=== PATIENT | female | born 1960 | race African-American/Black ===

== ENCOUNTER 2017-09-30 18:58 | Inpatient (IN) | payer MEDICARE, OTHER ==
[~2017-09-30] VITALS: Ht 177.8 cm; Wt 91.6 kg
[2017-09-30 19:00] VITALS: BP 147/96
[2017-09-30] MEDS ORDERED: DULERA 200 MCG/13 GM IH (19:15)
[2017-09-30] MEDS ORDERED: DUONEB 0.5-3(2.53 ML HHN (19:15)
[2017-09-30] MEDS ORDERED: [UNRECOGNIZED DRUG - REMARK] (19:15)
[2017-09-30] MEDS ORDERED: BENAZEPRIL HCL10 MG ORAL (19:15)
[2017-09-30] MEDS ORDERED: HYDROCHLOROTH12.5 M2 ORAL (19:15)
[2017-09-30] MEDS ORDERED: Sodium Chloride 500ML 500 ML IV ONE (19:16)
[2017-09-30] MEDS ORDERED: Solu-MEDROL 125mg Inj IVP ONE (19:30)
[2017-09-30] MEDS: Albuterol ud Inhalation HHN SCH ×3 (19:30→20:00)
[2017-09-30] MEDS: Ipratropium 0.02% Inh Soln 2.5ml UD HHN SCH ×3 (19:30→20:00)
[2017-09-30 20:03] LABS: BASOPHILS % (AUTO) 0.8 % (0.0-2.0); LYMPHOCYTES % (AUTO) 23.8 % (20.0-45.0); MEAN CORPUSCULAR HEMOGLOBIN 28.1 PG (27.0-31.0); MEAN CORPUSCULAR HGB CONC 31.5 G/DL (32.0-36.0); MEAN CORPUSCULAR VOLUME 89 FL (80-99); MEAN PLATELET VOLUME 6.8 FL (6.5-10.1); MONOCYTES % (AUTO) 5.8 % (1.0-10.0); NEUTROPHILS % (AUTO) 66.6 % (45.0-75.0); PLATELET COUNT 379 K/UL (150-450); RED BLOOD COUNT 4.13 M/UL (4.20-5.40); RED CELL DISTRIBUTION WIDTH 13.1 % (11.6-14.8); WHITE BLOOD COUNT 15.6 K/UL (4.8-10.8)
[2017-09-30 20:06] LABS: ANION GAP 8 mmol/L (5-15); CARBON DIOXIDE 29 MMOL/L (21-32); CHLORIDE 102 MMOL/L (98-107); CREATININE 1.2 MG/DL (0.55-1.30); GLOMERULAR FILTRATION RATE 56.6 mL/min (>60); POTASSIUM 3.4 MMOL/L (3.5-5.1); SODIUM 139 MMOL/L (136-145)
[2017-09-30 20:22] LABS: ALANINE AMINOTRANSFERASE 13 U/L (12-78); ALBUMIN/GLOBULIN RATIO 0.5 (1.0-2.7); ASPARTATE AMINO TRANSFERASE 20 U/L (15-37); CKMB 1.5 NG/ML (0.0-3.6); TOTAL PROTEIN 9.1 G/DL (6.4-8.2)
[2017-09-30 20:54] LABS: APPEARANCE,URINE CLEAR; KETONES,URINE NEGATIVE (NEGATIVE); LEUKOCYTE ESTERASE ,URINE 3+ (NEGATIVE); NITRITE,URINE NEGATIVE (NEGATIVE); PH,URINE 5 (4.5-8.0); PROTEIN,URINE 2+ (NEGATIVE); UROBILINOGEN,URINE NORMAL MG/DL (0.0-1.0)
[2017-09-30 21:00] VITALS: BP 127/81
[2017-09-30 21:03] LABS: BACTERIA,URINE FEW /HPF; RBC,URINE 0-2 /HPF (0 - 2); SQUAMOUS EPITHELIAL CELL,UR FEW /LPF (NONE/OCC)
--- NOTE | 2017-09-30 21:29 | Emergency Room Report ---
History of Present Illness General Chief Complaint: Dyspnea/Respdistress Source: Patient Present Illness HPI 56-year-old female presents to ED for evaluation. Patient brought in by EMS for shortness of breath. Patient states she's been having a cough that is productive with greenish sputum for the last 2 days. Also complaining of shortness of breath or wheezing. Has history of COPD. Denies chest pain. Denies fevers chills. No other aggravating relieving factors. Denies any other associated symptoms Allergies: Coded Allergies: LIDOCAINE (Verified Allergy, Unknown, 09/30/17) PENICILLINS (Verified Allergy, Unknown, 09/30/17) Uncoded Allergies: NOVACAINE (Allergy, Unknown, 09/30/17) Patient History Past Medical History: COPD Past Surgical History: none Pertinent Family History: none Social History: Denies: smoking, alcohol use, drug use Now: No Immunizations: UTD Reviewed Nursing Documentation: PMH: Agreed, PSxH: Agreed Nursing Documentation-PMH Hx COPD: Yes - Pneumonia "several times" Review of Systems All Other Systems: negative except mentioned in HPI Physical Exam Vital Signs Date Time Temp Pulse Resp B/P (MAP) Pulse Ox O2 Delivery O2 Flow Rate FiO2 09/30/17 18:54 90 28 133/72 99 Venturi Mask 09/30/17 19:00 97.3 09/30/17 19:20 21 Sp02 EP Interpretation: reviewed, normal General Appearance: no apparent distress, alert, GCS 15, non-toxic Head: normocephalic, atraumatic Eyes: bilateral eye normal inspection, bilateral eye PERRL ENT: hearing grossly normal, normal pharynx, no angioedema, normal voice Neck: full range of motion, supple/symm/no masses Respiratory: crackles, speaking full sentences, wheezing Cardiovascular #1: regular rate, rhythm, no edema Cardiovascular #2: 2+ carotid (R), 2+ carotid (L), 2+ radial (R), 2+ radial (L) , 2+ dorsalis pedis (R), 2+ dorsalis pedis (L) Gastrointestinal: normal bowel sounds, non tender, soft, non-distended, no guarding, no rebound Rectal: deferred Genitourinary: normal inspection, no CVA tenderness Musculoskeletal: back normal, gait/station normal, normal range of motion, non- tender Neurologic: alert, oriented x3, responsive, motor strength/tone normal, sensory intact, speech normal Psychiatric: judgement/insight normal, memory normal, mood/affect normal, no suicidal/homicidal ideation Reflexes: 3+ bicep (R), 3+ bicep (L), 3+ tricep (R), 3+ tricep (L), 3+ knee (R) , 3+ knee (L) Skin: normal color, no rash, warm/dry, well hydrated Lymphatic: no adenopathy Medical Decision Making Diagnostic Impression: Primary Impression: COPD exacerbation Additional Impression: Pneumonia Qualified Codes: J18.9 - Pneumonia, unspecified organism ER Course Hospital Course 56-year-old F presenting to ED with SOB. h/o COPD Differential diagnoses include: Pneumonia, CHF exacerbation, pneumothorax, fluid overload Clinical course Patient placed on stretcher. On belt changer with stable vitals. After initial history and physical, I ordered nebulizer treatments. I ordered labs, IV fluids, EKG, chest x-ray, blood cultures, UA. Labs - noted leukocytosis, hemoglobin/hematocrit stable, electrolytes okay, lactate okay, troponins negative CXR -bilateral infiltrates EKG- NSR, no acute ischemic changes interpreted by me abx given. IVFs given Case discussed with Dr. Yung and he agreed to the patient to his service for further care and support I feel this is a highly complex case requiring extensive working including EKG/ Rhythm strip, Xray/CT/US, Blood/urine lab work, repeat exams while in ED, and administration of strong opiates/narcotics for pain control, admission to hospital or close patient follow up. Diagnosis - COPD exacerbation, pneumonia Patient admitted to telemetry in serious condition Labs Test 09/30/17 19:07 09/30/17 20:30 White Blood Count 15.6 K/UL (4.8-10.8) Red Blood Count 4.13 M/UL (4.20-5.40) Hemoglobin 11.6 G/DL (12.0-16.0) Hematocrit 36.9 % (37.0-47.0) Mean Corpuscular Volume 89 FL (80-99) Mean Corpuscular Hemoglobin 28.1 PG (27.0-31.0) Mean Corpuscular Hemoglobin Concent 31.5 G/DL (32.0-36.0) Red Cell Distribution Width 13.1 % (11.6-14.8) Platelet Count 379 K/UL (150-450) Mean Platelet Volume 6.8 FL (6.5-10.1) Neutrophils (%) (Auto) 66.6 % (45.0-75.0) Lymphocytes (%) (Auto) 23.8 % (20.0-45.0) Monocytes (%) (Auto) 5.8 % (1.0-10.0) Eosinophils (%) (Auto) 3.0 % (0.0-3.0) Basophils (%) (Auto) 0.8 % (0.0-2.0) Sodium Level 139 MMOL/L (136-145) Potassium Level 3.4 MMOL/L (3.5-5.1) Chloride Level 102 MMOL/L (98-107) Carbon Dioxide Level 29 MMOL/L (21-32) Anion Gap 8 mmol/L (5-15) Blood Urea Nitrogen 19 mg/dL (7-18) Creatinine 1.2 MG/DL (0.55-1.30) Estimat Glomerular Filtration Rate 56.6 mL/min (>60) Glucose Level 98 MG/DL (74-106) Lactic Acid Level 1.50 mmol/L (0.66-2.22) Calcium Level 9.0 MG/DL (8.5-10.1) Total Bilirubin 0.3 MG/DL (0.2-1.0) Aspartate Amino Transf (AST/SGOT) 20 U/L (15-37) Alanine Aminotransferase (ALT/SGPT) 13 U/L (12-78) Alkaline Phosphatase 68 U/L (46-116) Total Creatine Kinase 103 U/L (26-308) Creatine Kinase MB 1.5 NG/ML (0.0-3.6) Creatine Kinase MB Relative Index 1.4 Troponin I 0.000 ng/mL (0.000-0.056) Pro-B-Type Natriuretic Peptide 222 pg/mL (0-125) Total Protein 9.1 G/DL (6.4-8.2) Albumin 3.2 G/DL (3.4-5.0) Globulin 5.9 g/dL Albumin/Globulin Ratio 0.5 (1.0-2.7) Urine Color Pale yellow Urine Appearance Clear Urine pH 5 (4.5-8.0) Urine Specific [place] 1.010 (1.005-1.035) Urine Protein 2+ (NEGATIVE) Urine Glucose (UA) Negative (NEGATIVE) Urine Ketones Negative (NEGATIVE) Urine Occult Blood 1+ (NEGATIVE) Urine Nitrite Negative (NEGATIVE) Urine Bilirubin Negative (NEGATIVE) Urine Urobilinogen Normal MG/DL (0.0-1.0) Urine Leukocyte Esterase 3+ (NEGATIVE) Urine RBC 0-2 /HPF (0 - 2) Urine WBC 2-4 /HPF (0 - 2) Urine Squamous Epithelial Cells Few /LPF (NONE/OCC) Urine Bacteria Few /HPF (NONE) EKG Diagnostic Results Rate: normal Rhythm: NSR ST Segments: no acute changes ASA given to the pt in ED: No Rhythm Strip Diag. Results EP Interpretation: yes Rhythm: NSR, no PVC's, no ectopy Chest X-Ray Diagnostic Results Chest X-Ray Diagnostic Results : Chest X-Ray Ordered: Yes # of Views/Limited/Complete: 1 View Indication: Shortness of Breath EP Interpretation: Yes Interpretation: no pneumothorax, no acute cardiopulmonary disease, other - bilateral pneumonia Impression: Other - pneumonia Electronically Signed by: Electronically signed by Navin Weinstein MD Last Vital Signs Date Time Temp Pulse Resp B/P (MAP) Pulse Ox O2 Delivery O2 Flow Rate FiO2 09/30/17 20:06 93 14 100 Room Air 21 09/30/17 19:00 97.3 147/96 Status: improved Disposition: ADMITTED INPATIENT Condition: Serious Referrals: NON PHYSICIAN (PCP) NAVIN WEINSTEIN M.D. Sep 30, 2017 21:29
[2017-09-30 22:30] VITALS: BP_SYST 131; BP_SYST 143; BP_DIAS 73; BP_DIAS 77
[2017-09-30] MEDS ORDERED: Morphine Sulfate 2mg/ml Inj IVP PRN (23:00)
[2017-09-30] MEDS ORDERED: Promethazine/Codeine 5ml UD ORAL PRN (23:00)
[2017-09-30] MEDS ORDERED: Ketorolac 30mg Inj IV PRN (23:00)
[2017-09-30] MEDS ORDERED: LORazepam Inj 2mg/ml 1ml IV PRN (23:00)
[2017-09-30] MEDS ORDERED: Albuterol/Ipratropium 3ml neb HHN PRN (23:00)
[2017-09-30] MEDS ORDERED: Nitroglycerin Subl 0.4mg tab SL PRN (23:00)
[2017-10-01] VITALS: BP 148/68
[2017-10-01] MEDS: Solu-MEDROL 125mg Inj IV SCH ×4 (00:22→17:43)
[2017-10-01 04:00] VITALS: BP 108/83
[2017-10-01] MEDS: Aztreonam Inj 1 GM in NS 50 ML IVPB SCH ×3 (06:09→22:59)
[2017-10-01 08:00] VITALS: BP 130/71
[2017-10-01] MEDS ORDERED: Theophylline ER 100mg ORAL SCH (09:00)
[2017-10-01] MEDS ORDERED: Heparin 5000 units/ml inj SUBQ SCH (09:00)
[2017-10-01] MEDS ORDERED: Benazepril 10mg tab ORAL SCH (09:00)
[2017-10-01 12:00] VITALS: BP 125/71
--- NOTE | 2017-10-01 12:47 | History and Physical ---
History of Present Illness General Date patient seen: Oct 01, 2017 Reason for Hospitalization: Dyspnea/Respdistress Present Illness HPI 56-year-old female with history of COPD presented to ED for evaluation of shortness of breath and ough that is productive with greenish sputum for the last 2 days. Also complaining of shortness of breath or wheezing. Pt is admitted for acute exacerbation of COPd and bronchitis. Allergies: Coded Allergies: LIDOCAINE (Verified Allergy, Unknown, 09/30/17) PENICILLINS (Verified Allergy, Unknown, 09/30/17) Uncoded Allergies: NOVACAINE (Allergy, Unknown, 09/30/17) Medication History Scheduled Benazepril Hcl* (Benazepril Hcl*), 10 MG ORAL DAILY, (Reported) Hydrochlorothiazide* (Hydrochlorothiazide*), Unknown Dose ORAL DAILY, (Reported) Ipratropium/Albuterol Sulfate (DuoNeb 0.5-3(2.5)mg/3ml), 3 ML HHN BID, (Reported ) Miscellaneous Medications Mometasone/Formoterol (Dulera 200 Mcg/5 Mcg Inhaler), Unknown Dose IH, (Reported ) ["Other copd meds"], (Reported) Patient History Healthcare decision maker Resuscitation status Full Code Advanced Directive on File No Past Medical/Surgical History Past Medical/Surgical History: (1) COPD (chronic obstructive pulmonary disease) Review of Systems Respiratory: Reports: cough, wheezing, sputum Physical Exam General Appearance: WD/WN Lines, tubes and drains: peripheral Neck: non-tender, normal alignment Respiratory/Chest: chest wall non-tender, lungs clear Breasts: no masses Cardiovascular/Chest: normal peripheral pulses, normal rate Abdomen: normal bowel sounds, non tender Genitourinary/Rectal: normal genital exam Extremities: normal range of motion Last 24 Hour Vital Signs Date Time Temp Pulse Resp B/P (MAP) Pulse Ox O2 Delivery O2 Flow Rate FiO2 10/01/17 12:00 97.2 60 20 125/71 96 Room Air 10/01/17 08:20 130/71 10/01/17 08:00 68 10/01/17 08:00 97.1 65 20 130/71 95 Room Air 10/01/17 06:49 67 18 Room Air 21 10/01/17 04:00 67 10/01/17 04:00 98.4 83 24 108/83 98 Room Air 10/01/17 00:00 76 10/01/17 00:00 97.4 76 22 148/68 94 Room Air 09/30/17 22:30 97.3 78 14 131/73 95 Room Air 21 09/30/17 22:30 98.7 75 14 131/73 95 Room Air 09/30/17 22:30 97.5 78 25 143/77 95 Room Air 09/30/17 21:00 98.7 81 17 127/81 95 Room Air 09/30/17 20:06 93 14 100 Room Air 21 09/30/17 19:53 86 21 100 Room Air 21 09/30/17 19:53 89 20 100 Room Air 21 09/30/17 19:53 36 09/30/17 19:36 78 22 100 Room Air 21 09/30/17 19:36 36 09/30/17 19:32 98 22 100 Room Air 21 09/30/17 19:20 36 09/30/17 19:20 103 20 91 Room Air 09/30/17 19:20 105 22 Room Air 21 09/30/17 19:00 97.3 92 20 147/96 92 Room Air 09/30/17 19:00 92 20 Room Air 09/30/17 18:54 90 28 133/72 99 Venturi Mask Laboratory Tests Test 09/30/17 19:07 09/30/17 20:30 White Blood Count 15.6 K/UL (4.8-10.8) H Red Blood Count 4.13 M/UL (4.20-5.40) L Hemoglobin 11.6 G/DL (12.0-16.0) L Hematocrit 36.9 % (37.0-47.0) L Mean Corpuscular Volume 89 FL (80-99) Mean Corpuscular Hemoglobin 28.1 PG (27.0-31.0) Mean Corpuscular Hemoglobin Concent 31.5 G/DL (32.0-36.0) L Red Cell Distribution Width 13.1 % (11.6-14.8) Platelet Count 379 K/UL (150-450) Mean Platelet Volume 6.8 FL (6.5-10.1) Neutrophils (%) (Auto) 66.6 % (45.0-75.0) Lymphocytes (%) (Auto) 23.8 % (20.0-45.0) Monocytes (%) (Auto) 5.8 % (1.0-10.0) Eosinophils (%) (Auto) 3.0 % (0.0-3.0) Basophils (%) (Auto) 0.8 % (0.0-2.0) Sodium Level 139 MMOL/L (136-145) Potassium Level 3.4 MMOL/L (3.5-5.1) L Chloride Level 102 MMOL/L (98-107) Carbon Dioxide Level 29 MMOL/L (21-32) Anion Gap 8 mmol/L (5-15) Blood Urea Nitrogen 19 mg/dL (7-18) H Creatinine 1.2 MG/DL (0.55-1.30) Estimat Glomerular Filtration Rate 56.6 mL/min (>60) Glucose Level 98 MG/DL (74-106) Lactic Acid Level 1.50 mmol/L (0.66-2.22) Calcium Level 9.0 MG/DL (8.5-10.1) Total Bilirubin 0.3 MG/DL (0.2-1.0) Aspartate Amino Transf (AST/SGOT) 20 U/L (15-37) Alanine Aminotransferase (ALT/SGPT) 13 U/L (12-78) Alkaline Phosphatase 68 U/L (46-116) Total Creatine Kinase 103 U/L (26-308) Creatine Kinase MB 1.5 NG/ML (0.0-3.6) Creatine Kinase MB Relative Index 1.4 Troponin I 0.000 ng/mL (0.000-0.056) Pro-B-Type Natriuretic Peptide 222 pg/mL (0-125) H Total Protein 9.1 G/DL (6.4-8.2) H Albumin 3.2 G/DL (3.4-5.0) L Globulin 5.9 g/dL Albumin/Globulin Ratio 0.5 (1.0-2.7) L Urine Color Pale yellow Urine Appearance Clear Urine pH 5 (4.5-8.0) Urine Specific [place] 1.010 (1.005-1.035) Urine Protein 2+ (NEGATIVE) H Urine Glucose (UA) Negative (NEGATIVE) Urine Ketones Negative (NEGATIVE) Urine Occult Blood 1+ (NEGATIVE) H Urine Nitrite Negative (NEGATIVE) Urine Bilirubin Negative (NEGATIVE) Urine Urobilinogen Normal MG/DL (0.0-1.0) Urine Leukocyte Esterase 3+ (NEGATIVE) H Urine RBC 0-2 /HPF (0 - 2) Urine WBC 2-4 /HPF (0 - 2) Urine Squamous Epithelial Cells Few /LPF (NONE/OCC) Urine Bacteria Few /HPF (NONE) Microbiology Date/Time Source Procedure Growth Status 09/30/17 19:07 Nasal Nares Influenza Types A,B Antigen (DONNY) - Final Complete Height (Feet): 5 Height (Inches): 10.00 Weight (Pounds): 202 Medications Current Medications Medications (Trade) Dose Ordered Sig/César Route PRN Reason Start Time Stop Time Status Last Admin Dose Admin Albuterol/ Ipratropium (Albuterol/ Ipratropium) 3 ml EVERY 4 HOURS PRN HHN dyspnea 09/30/17 23:00 10/05/17 22:59 Aztreonam 1 gm/ Sodium Chloride 50 ml @ 100 mls/hr EVERY 8 HOURS IVPB 10/01/17 06:00 10/08/17 05:59 10/01/17 06:09 Benazepril HCl (Lotensin) 10 mg DAILY ORAL 10/01/17 09:00 10/31/17 08:59 10/01/17 08:20 Dextrose (Dextrose 50%) STAT PRN IV Hypoglycemia 10/01/17 03:15 10/31/17 03:14 Heparin Sodium (Porcine) (Heparin 5000 units/ml) 5,000 units EVERY 12 HOURS SUBQ 10/01/17 09:00 10/31/17 08:59 Ketorolac Tromethamine (Toradol 30mg) 30 mg EVERY 8 HOURS PRN IV moderate pain 4-6 09/30/17 23:00 10/05/17 22:59 Lorazepam (Ativan 2mg/ml 1ml) 0.5 mg Q4H PRN IV For Anxiety 09/30/17 23:00 10/07/17 22:59 Methylprednisolone Sodium Succinate (Solu-MEDROL) 60 mg EVERY 6 HOURS IV 10/01/17 00:00 10/31/17 00:00 10/01/17 12:20 Morphine Sulfate (Morphine Sulfate) 2 mg EVERY 4 HOURS PRN IVP severe pain 7-10 09/30/17 23:00 10/07/17 22:59 Nitroglycerin (Ntg) 0.4 mg Q5M X 3 DOSES PRN SL Prn Chest Pain 09/30/17 23:00 10/30/17 22:59 Ondansetron HCl (Zofran) 4 mg Q6H PRN IVP Nausea & Vomiting 09/30/17 23:00 10/30/17 22:59 Promethazine HCl/ Codeine (Phenergan with Codeine) 5 ml EVERY 6 HOURS PRN ORAL cough 09/30/17 23:00 10/30/17 22:59 Temazepam (Restoril) 15 mg HSPRN PRN ORAL Insomnia 09/30/17 23:00 10/07/17 22:59 Theophylline (Dandy-Dur) 100 mg EVERY 12 HOURS ORAL 10/01/17 09:00 10/31/17 08:59 10/01/17 08:20 Assessment/Plan Problem List: (1) Pneumonia ICD Codes: J18.9 - Pneumonia, unspecified organism SNOMED: 207524577 Qualifiers: Qualified Codes: J18.9 - Pneumonia, unspecified organism (2) COPD exacerbation ICD Codes: J44.1 - Chronic obstructive pulmonary disease with (acute) exacerbation SNOMED: 745169881166347 Assessment/Plan iv abx respiratory treatment iv steroids check sputum TEODORO MURPHY Oct 01, 2017 12:47
[2017-10-01] MEDS ORDERED: LORazepam Inj 2mg/ml 1ml IV PRN (15:00)
[2017-10-01] MEDS ORDERED: Nitroglycerin Subl 0.4mg tab SL PRN (15:00)
[2017-10-01] MEDS ORDERED: NS 500ML ONE (15:44)
[2017-10-01] MEDS ORDERED: Tubing IV Secondary IV ONE (15:44)
[2017-10-01 16:00] VITALS: BP 128/80
[2017-10-01] MEDS ORDERED: Morphine Sulfate 2mg/ml Inj IVP PRN (17:00)
[2017-10-01] MEDS ORDERED: Albuterol/Ipratropium 3ml neb HHN PRN (17:00)
[2017-10-01 20:00] VITALS: BP 147/80
[2017-10-01] MEDS: Theophylline ER 100mg ORAL SCH (20:00)
[2017-10-01] MEDS: Promethazine/Codeine 5ml UD ORAL PRN (20:00)
[2017-10-01] MEDS: Heparin 5000 units/ml inj SUBQ SCH (21:00)
[2017-10-01] MEDS ORDERED: Ketorolac 30mg Inj IV PRN (22:00)
[2017-10-02] VITALS: BP 144/77
[2017-10-02] MEDS: Solu-MEDROL 125mg Inj IV SCH ×3 (00:10→11:47)
[2017-10-02 04:00] VITALS: BP 133/76
[2017-10-02] MEDS: Aztreonam Inj 1 GM in NS 50 ML IVPB SCH ×2 (05:50→13:49)
[2017-10-02 06:52] LABS: ALANINE AMINOTRANSFERASE 14 U/L (12-78); ALBUMIN/GLOBULIN RATIO 0.5 (1.0-2.7); ANION GAP 7 mmol/L (5-15); ASPARTATE AMINO TRANSFERASE 15 U/L (15-37); CARBON DIOXIDE 27 MMOL/L (21-32); CHLORIDE 103 MMOL/L (98-107); CREATININE 1.1 MG/DL (0.55-1.30); GLOMERULAR FILTRATION RATE > 60 mL/min (>60); POTASSIUM 4.4 MMOL/L (3.5-5.1); SODIUM 137 MMOL/L (136-145); TOTAL PROTEIN 8.2 G/DL (6.4-8.2)
[2017-10-02 07:05] LABS: MEAN CORPUSCULAR HEMOGLOBIN 27.6 PG (27.0-31.0); MEAN CORPUSCULAR VOLUME 89 FL (80-99); MEAN PLATELET VOLUME 6.5 FL (6.5-10.1); PLATELET COUNT 318 K/UL (150-450); RED BLOOD COUNT 3.78 M/UL (4.20-5.40); RED CELL DISTRIBUTION WIDTH 13.1 % (11.6-14.8)
[2017-10-02 07:46] VITALS: BP 155/82
[2017-10-02 07:58] LABS: WHITE BLOOD COUNT 24.1 K/UL (4.8-10.8)
[2017-10-02] MEDS: Theophylline ER 100mg ORAL SCH (08:04)
[2017-10-02] MEDS: Promethazine/Codeine 5ml UD ORAL PRN (08:04)
[2017-10-02] MEDS: Heparin 5000 units/ml inj SUBQ SCH (08:05)
[2017-10-02 08:26] LABS: BAND NEUTROPHILS % (MANUAL) 0 % (0-8); BASOPHILS % (MANUAL) 0 % (0-2); EOSINOPHILS % (MANUAL) 0 % (0-3); HYPOCHROMASIA 1+; LYMPHOCYTES % (MANUAL) 10 % (20-45); NEUTROPHILS % (MANUAL) 89 % (45-75); PLATELET ESTIMATE ADEQUATE; PLATELET MORPHOLOGY NORMAL; TOTAL CELLS COUNTED 100
[2017-10-02] MEDS ORDERED: Benazepril 10mg tab ORAL SCH (09:00)
[2017-10-02 12:03] VITALS: BP 135/77
--- NOTE | 2017-10-02 15:31 | Diagnostic Imaging Report ---
Indication: Shortness of breath Technique: One view of the chest Comparison: 09/30/2017 Findings: Interim marked improvement of previously demonstrated bilateral perihilar and basilar parenchymal opacities. There is some residual atelectasis at the left lung base, and minimal residual interstitial prominence in the lower lungs bilaterally. No new infiltrates. Normal heart size. Impression: Marked improvement of bilateral pulmonary parenchymal opacities, over 2 days, likely reflecting improving pulmonary edema Residual left basilar atelectasis
--- NOTE | 2017-10-02 16:00 | Pulmonology Progress Note ---
Assessment/Plan Problems: (1) Pneumonia (2) COPD exacerbation Assessment/Plan improving taper steroids dc home with oral abx. Subjective Interval Events: improving, resiratory treatment Allergies: Coded Allergies: LIDOCAINE (Verified Allergy, Unknown, 09/30/17) PENICILLINS (Verified Allergy, Unknown, 09/30/17) Uncoded Allergies: NOVACAINE (Allergy, Unknown, 09/30/17) Objective Last 24 Hour Vital Signs Date Time Temp Pulse Resp B/P (MAP) Pulse Ox O2 Delivery O2 Flow Rate FiO2 10/02/17 12:03 98.6 55 21 135/77 100 Room Air 10/02/17 09:48 72 18 Nasal Cannula 3.0 32 10/02/17 08:04 155/82 10/02/17 07:46 97.5 92 20 155/82 96 Room Air 10/02/17 04:00 97.8 51 18 133/76 94 10/02/17 00:00 97.9 54 21 144/77 96 10/01/17 20:00 97.7 60 21 147/80 97 10/01/17 20:00 Room Air 10/01/17 19:26 60 17 Nasal Cannula 3.0 32 10/01/17 16:00 97.5 58 21 128/80 97 Room Air Intake and Output 10/02/17 10/03/17 19:00 07:00 Intake Total 290 ml Balance 290 ml Intake Oral 240 ml IV Total 50 ml General Appearance: WD/WN HEENT: normocephalic, atraumatic Respiratory/Chest: chest wall non-tender, lungs clear Breasts: no masses Cardiovascular: normal peripheral pulses, normal rate Abdomen: normal bowel sounds, soft, non tender Extremities: no cyanosis, no clubbing Microbiology Date/Time Source Procedure Growth Status 09/30/17 19:17 Blood Blood Culture - Preliminary NO GROWTH AFTER 24 HOURS Resulted 09/30/17 19:07 Blood Blood Culture - Preliminary NO GROWTH AFTER 24 HOURS Resulted 10/01/17 05:45 Sputum Gram Stain - Final Resulted 10/01/17 05:45 Sputum Sputum Culture Pending Resulted 09/30/17 19:07 Nasal Nares Influenza Types A,B Antigen (DONNY) - Final Complete Laboratory Tests 10/02/17 06:05: White Blood Count 24.1#*H, Red Blood Count 3.78L, Hemoglobin 10.5L, Hematocrit 33.7L, Mean Corpuscular Volume 89, Mean Corpuscular Hemoglobin 27.6, Mean Corpuscular Hemoglobin Concent 31.0L, Red Cell Distribution Width 13.1, Platelet Count 318, Mean Platelet Volume 6.5, Neutrophils (%) (Auto) , Lymphocytes (%) (Auto) , Monocytes (%) (Auto) , Eosinophils (%) (Auto) , Basophils (%) (Auto) , Differential Total Cells Counted 100, Neutrophils % ( Manual) 89H, Lymphocytes % (Manual) 10L, Monocytes % (Manual) 1, Eosinophils % ( Manual) 0, Basophils % (Manual) 0, Band Neutrophils 0, Platelet Estimate Adequate, Platelet Morphology Normal, Hypochromasia 1+, Sodium Level 137, Potassium Level 4.4, Chloride Level 103, Carbon Dioxide Level 27, Anion Gap 7, Blood Urea Nitrogen 24H, Creatinine 1.1, Estimat Glomerular Filtration Rate > 60 , Glucose Level 125H, Calcium Level 9.0, Total Bilirubin 0.2, Aspartate Amino Transf (AST/SGOT) 15, Alanine Aminotransferase (ALT/SGPT) 14, Alkaline Phosphatase 66, Total Protein 8.2, Albumin 2.7L, Globulin 5.5, Albumin/Globulin Ratio 0.5L Current Medications Medications (Trade) Dose Ordered Sig/César Route PRN Reason Start Time Stop Time Status Last Admin Dose Admin Albuterol/ Ipratropium (Albuterol/ Ipratropium) 3 ml Q4H PRN HHN dyspnea 10/01/17 17:00 10/06/17 16:59 Aztreonam 1 gm/ Sodium Chloride 50 ml @ 100 mls/hr EVERY 8 HOURS IVPB 10/01/17 22:00 10/08/17 05:59 10/02/17 13:49 Benazepril HCl (Lotensin) 10 mg DAILY ORAL 10/02/17 09:00 10/31/17 08:59 10/02/17 08:04 Dextrose (Dextrose 50%) STAT PRN IV Hypoglycemia 10/01/17 15:12 10/31/17 15:11 Heparin Sodium (Porcine) (Heparin 5000 units/ml) 5,000 units EVERY 12 HOURS SUBQ 10/01/17 21:00 10/31/17 08:59 Ketorolac Tromethamine (Toradol 30mg) 30 mg Q8H PRN IV moderate pain 4-6 10/01/17 22:00 10/06/17 21:59 Lorazepam (Ativan 2mg/ml 1ml) 0.5 mg Q4H PRN IV For Anxiety 10/01/17 15:00 10/07/17 22:59 Methylprednisolone Sodium Succinate (Solu-MEDROL) 60 mg EVERY 6 HOURS IV 10/01/17 18:00 10/31/17 00:00 10/02/17 11:47 Morphine Sulfate (Morphine Sulfate) 2 mg Q4H PRN IVP severe pain 7-10 10/01/17 17:00 10/08/17 16:59 Nitroglycerin (Ntg) 0.4 mg Q5M X 3 DOSES PRN SL Prn Chest Pain 10/01/17 15:00 10/30/17 22:59 Ondansetron HCl (Zofran) 4 mg Q6H PRN IVP Nausea & Vomiting 10/01/17 17:00 10/30/17 22:59 Promethazine HCl/ Codeine (Phenergan with Codeine) 5 ml Q6H PRN ORAL cough 10/01/17 18:00 10/31/17 17:59 10/02/17 08:04 Temazepam (Restoril) 15 mg HSPRN PRN ORAL Insomnia 10/01/17 15:15 10/07/17 15:14 Theophylline (Dandy-Dur) 100 mg EVERY 12 HOURS ORAL 10/01/17 21:00 10/31/17 08:59 10/02/17 08:04 TEODORO MURPHY Oct 02, 2017 16:00
[2017-10-02] MEDS ORDERED: LEVOFLOXACIN500 MG ORAL (16:02)
--- NOTE | 2017-10-03 21:45 | Discharge Summary 2 SIG ---
DATE OF ADMISSION: 09/30/2017 DATE OF DISCHARGE: 10/02/2017 BRIEF HOSPITAL COURSE: The patient is a 56-year-old female with history of COPD presented to ED for evaluation of shortness of breath and cough that is productive with greenish sputum that has been ongoing for the past two days. She was also complaining of shortness of breath with wheezing. On evaluation at ED, blood work showed leukocytosis, WBC 15.6. Chest x-ray showed bilateral pneumonia. EKG was in normal sinus rhythm. She was given IV hydration and was started on IV antibiotics. She was admitted to telemetry for COPD exacerbation and pneumonia. She was given respiratory treatment and was started on IV steroids. Influenza A and B was negative. Blood cultures did not isolate any growth. Sputum culture showed normal upper respiratory ulices. She was then tapered off the steroids and was eventually discharged home to continue oral antibiotics. FINAL DIAGNOSES: 1. Acute bronchitis. 2. Pneumonia. DISPOSITION: The patient was discharged home. DISCHARGE MEDICATIONS: Levofloxacin 500 mg x3 more days. FOLLOWUP: Follow up with PMD. Rose Yung M.D. I have been assigned to dictate discharge summary on this account and I was not involved in the patient's management. Danita Cristina N.P. DR: BABAR JOB#: [id number] CC: XENIA
== END 2017-10-02 16:25 | disposition home or self-care (01) | DRG 190 ==
LOC: EDBD 18:58 → EMR 19:51 → 2E 20:00 → EDBEDREQ 21:12 → 2E 23:34 → 4E 10-01 14:37
DX: J44.0 Chronic obstructive pulmonary disease with (acute) lower respiratory infection (principal); J18.9 Pneumonia, unspecified organism; J44.1 Chronic obstructive pulmonary disease with (acute) exacerbation; Z88.0 Allergy status to penicillin
CPT/HCPCS: 36415; 71010; 80053; 81003; 82550; 82553; 83605; 83880; 84484; 85007; 85025; 86710; 87040; 87070; 87205; 93005; 94640; 94664; 99285